=== PATIENT | male | born 1985 | race Caucasian/White ===

== ENCOUNTER 2016-12-21 18:25 | Emergency (ER) | payer SELFPAY ==
[~2016-12-21] VITALS: Ht 172.7 cm; Wt 99.0 kg
[2016-12-21 18:26] VITALS: Ht 172.7 cm; Wt 99.0 kg
[2016-12-21] MEDS ORDERED: LIDOCAINE 2% (MDV) 20 ML INJ INJ ONE (20:00)
[2016-12-21] MEDS ORDERED: HYDROCODONE/APAP (5/325) TAB PO ONE (20:00)
[2016-12-21] MEDS ORDERED: SULF1TAB31 PO (20:59)
[2016-12-21] MEDS ORDERED: CEPH-443 PO (20:59)
[2016-12-21] MEDS ORDERED: HYDR-906 PO (21:01)
--- NOTE | 2016-12-21 22:12 | ERD ---
ER Documentation Chief Complaint Date/Time DATE: 12/21/16 TIME: 22:08 Chief Complaint ABSCESS ON RECTUM X 3 DAYS, C/ DRAINAGE, FEVER ILANA Is a 31-year-old male presents to the emergency department today complaining of an abscess on his buttock for the past 3 days. States that he had some pus from it today. States that a couple of days ago he felt chilled. States that he had something similar on the right side of his buttock back in October. States that he saw his primary care doctor on Monday was given ibuprofen and Cipro but he still has pain with sitting. ROS All systems reviewed and are negative except as per history of present illness. Medications Home Meds Active Scripts Hydrocodone/Acetaminophen ([place] 5-325 Tablet) 1 Each Tablet, 1 TAB PO Q6H Y for PAIN, #7 TAB Prov:VASYL BARCLAY PA-C 12/21/16 Sulfamethoxazole/Trimethoprim* (Bactrim Ds* Tablet) 1 Each Tablet, 1 TAB PO BID for 7 Days, #14 TAB Prov:VASYL BARCLAY PA-C 12/21/16 Cephalexin* (Keflex*) 500 Mg Capsule, 500 MG PO QID for 7 Days, CAP Prov:VASYL BARCLAY PA-C 12/21/16 Allergies Allergies: Coded Allergies: No Known Allergy (Unverified , 12/21/16) PMhx/Soc Medical and Surgical Hx: pt denies Medical Hx History of Surgery: Yes (appendix) Hx Alcohol Use: No Hx Substance Use: No Hx Tobacco Use: No Smoking Status: Never smoker Physical Exam Vitals Vital Signs Date Time Temp Pulse Resp B/P Pulse Ox O2 Delivery O2 Flow Rate FiO2 12/21/16 18:26 98.5 89 18 123/76 98 Physical Exam Const: NAD Head: Atraumatic Eyes: Normal Conjunctiva ENT: Normal External Ears, Nose and Mouth. Neck: Full range of motion..~ No meningismus. Resp: Clear to auscultation bilaterally Cardio: Regular rate and rhythm, no murmurs Skin: Buttock with tenderness to palpation at gluteal cleft. No erythema or warmth. Very mild fluctuance. No purulent drainage. Back: No midline or flank tenderness Ext: No cyanosis, or edema Neur: Awake and alert Psych: Normal Mood and Affect Results 24 hrs Current Medications Medications (Trade) Dose Ordered Sig/Jose Enrique Route PRN Reason Start Time Stop Time Status Last Admin Dose Admin Acetaminophen/ Hydrocodone Bitart ([place] (5/325)) 1 tab ONCE ONCE PO 12/21/16 20:00 12/21/16 20:01 DC 12/21/16 20:09 Lidocaine (Xylocaine 2% (Mdv) 20 ml) 20 ml ONCE ONCE INJ 12/21/16 20:00 12/21/16 20:01 DC Procedures/MDM This a 31-year-old male who presents to the emergency department today complaining of an abscess on his rectum for the past 3 days. Patient is complaining of pain at the gluteal cleft and there has been no trauma of low suspicion for coccyx fracture. There is only very mild fluctuance and no erythema or warmth. I did plan to the patient that I could attempt an incision and drainage for likely pilonidal cyst however there was not a significant amount of fluctuance. I explained the risks versus the benefits and patient agreed to proceed. Patient tolerated the procedure well and there were no complications. Very minimal fluid was removed from the area. I explained this to the patient. Abscess Incision and Drainage with irrigation by me: Location: Gluteal cleft Anesthesia: [Local 1% Lidocaine] 5 cc Technique: [Irrigated. Disrupted loculations w/ instrumentation ] Packing: [None] Complications: [Neurovascularly intact post procedure] 48 hour wound check. Scar minimization instructions given. Patient's skin symptoms have stabilized while they have been evaluated in the department and are appropriate for outpatient care and work up. Exam and w/u not consistent w/ sepsis, deep space infection, or foreign body. Patient is afebrile and otherwise well-appearing. No evidence of cellulitis. Patient was given [place] here in the emergency department. He was instructed to stop taking the Cipro and was placed on Bactrim and Keflex. He was instructed to return in 48 hours for wound check. He was given a short course of [place] for home and he may continue taking his ibuprofen. At this time the patient is stable for discharge and outpatient management. Patient should follow up with their PCP in the next 1-2 days. They may return to the emergency department sooner for any persistent or worsening of symptoms. Patient understood and agreed with the plan. Departure Diagnosis: Primary Impression: Abscess Condition: Fair Patient Instructions: Abscess, Incision And Drainage Referrals: your clinic Additional Instructions: Llame al doctor ANGLE y maico kevin SEAN PARA DENTRO DE 1-2 GORMAN.Dgale a la secretaria que nosotros le instruimos hacer esta sean.Avise o llame si high condicin se empeora antes de la sean. Regresa aqui si peor o no mejor. Take new antibiotics as prescribed Stop taking the Cipro you were prescribed Keep wound clean and dry Wound check in 48 hours Take [place] for severe pain otherwise take the Motrin you were prescribed VASYL BARCLAY PA-C Dec 21, 2016 22:12
== END 2016-12-21 21:19 | disposition home or self-care (01) ==
LOC: FTE 18:25
DX: L02.31 Cutaneous abscess of buttock (principal)